=== PATIENT | male | born 1970 | race African-American/Black ===

== ENCOUNTER 2016-08-08 15:52 | Inpatient (IN) | payer BC ==
--- NOTE | ~2016-08-08 | CN ---
Consultation Report [facility] [address] [place]. [address] NAME: STERLING LOUIE : 68 STATUS : ADM IN [facility]#: [id number] AGE: 46 ADM/REG DATE : 08/08/16 MR#: [id number] REPORT SERV DATE: 08/09/16 DICTATED BY: ABEL CANELA JR. DATE: 08/09/16 REPORT STATUS : Draft TRANSCRIBED BY: KWABENA DATE: 08/09/16 CONSULTATION DATE OF CONSULTATION: INDICATION: CHF. HPI: The patient is a 46-year-old, noncompliant white male with presumed schizoaffective disorder who is also followed by Dr. Sami Mcmahon for cardiomyopathy and paroxysmal atrial fibrillation flutter who was recently discharged following ablation and now re- presents admittedly off medications with admitted noncompliance with hypertensive exacerbation and volume overload. Since resuming medications, symptoms have significantly improved. He is sitting up in bed without oxygen, drinking coffee this morning with no complaint. REVIEW OF SYSTEMS: Ten-point review of systems otherwise is unremarkable. He denies any angina. He denies any orthopnea, PND. MEDICATIONS: At home include acetazolamide 125 mg daily, aspirin 81 mg daily, Bumex 1 mg p.o. b.i.d., carvedilol 25 mg b.i.d., Plavix 75 mg daily, digoxin 0.125 mg daily, Flonase nasal spray, insulin, isosorbide mononitrate 30 mg daily, lisinopril 20 mg daily, multivitamin daily, pantoprazole 40 mg daily, potassium 10 mEq daily, Zocor 40 mg at bedtime. ALLERGIES: HALOPERIDOL. PAST MEDICAL HISTORY: Notable for history of mixed ischemic and nonischemic cardiomyopathy, history of diabetes mellitus, hyperlipidemia, hypertension. PAST SURGICAL HISTORY: Notable for left ear surgery, wrist EP ablation, prior PTCA and stent, remote. SOCIAL HISTORY: Notable for polysubstance abuse including amphetamines and barbiturates, tobacco, ethanol. FAMILY HISTORY: Notable for heart disease. PHYSICAL EXAMINATION: VITAL SIGNS: Blood pressure originally was 170/111, pulse was 82 and regular, respirations 14. The patient is afebrile. HEENT: Unremarkable. NECK: Supple without jugular venous distention. CARDIOVASCULAR: Regular rate and rhythm. S3, S4. Consultation Report [facility] [address] [place]. [address] NAME: STERLING LOUIE : 68 STATUS : ADM IN PAT#: [id number] AGE: 46 ADM/REG DATE : 08/08/16 MR#: [id number] REPORT SERV DATE: 08/09/16 DICTATED BY: ABEL CANELA JR. DATE: 08/09/16 REPORT STATUS : Draft TRANSCRIBED BY: MODL DATE: 08/09/16 LUNGS: Clear. ABDOMEN: Benign. Normoactive bowel sounds. EXTREMITIES: 1+ with no worsening of pedal edema. Venous stasis changes are improved. NEUROLOGIC: He appears to be grossly intact. LABORATORIES: EKG notable for sinus rhythm with nonspecific ST changes. Sodium 135, potassium 4, chloride 99, CO2 of 28, BUN 23, creatinine 1.2. Glucose of 495. H and H 11.4 and 31.4, white count of 6.4, platelet count 334,000. BNP of 2098. PT/INR of 1. Troponin less than 0.02. Chest x-ray is notable for cardiomegaly with mild interstitial edema. Bilateral pleural effusions and consolidation noted. ABG is noted. IMPRESSION: 46-year-old, white male with hypervolemia, hypertensive exacerbation, history of noncompliance with polysubstance abuse. RECOMMENDATIONS: 1. Resume home medications. 2. ARTIS hose. 3. Fluid restriction. 4. Control of the glucoses. 5. Recent nuclear in the past 2 months has been negative. He does not want a repeat nuclear at this time nor cardiac catheterization unless events change. 6. Cardiac risk factor reduction. /KWABENA Abel Canela Jr., M.D. / [id number] CC: Fracisco Rodriguez MD
--- NOTE | ~2016-08-08 | HP ---
History And Physical [place] [address] [facility] [place]. [address] NAME: STERLING LOUIE : 68 STATUS : ADM IN [facility]#: [id number] AGE: 46 ADM/REG DATE : 08/08/16 MR#: [id number] REPORT SERV DATE: 08/09/16 DICTATED BY: CANDACE WESTFALL DATE: 08/08/16 REPORT STATUS : Draft TRANSCRIBED BY: MODNando DATE: 08/08/16 DATE OF ADMISSION: 08/08/2016 POINT OF ENTRY: [facility] Emergency Department. PRIMARY SOLAR SALES ASSESSOR: Maximino Canela M.D. CHIEF COMPLAINT: Shortness of breath and dyspnea on exertion. HISTORY OF PRESENT ILLNESS: Mr. Louie is a 46-year-old gentleman with history of chronic systolic congestive heart failure with ejection fraction of 25% as well as coronary artery disease with prior PCI and uncontrolled insulin-dependent diabetes mellitus type 2 with hemoglobin A1c of 13.8, who presents to the emergency department today with reports of shortness of breath and dyspnea on exertion over the past two days. The patient was recently admitted to the Hospitalist Service in middle of June for acute on chronic systolic congestive heart failure. He underwent an echocardiogram which confirmed an ejection fraction of 25%. Stress test showed no inducible ischemia but was consider high risk given his depressed LV function and was discharged to home with a LifeVest with an appointment to follow up with Dr. Canela in approximately one month. The patient states that he originally was compliant with his medications, but he does admit that he missed his appointment with Dr. Canela in the middle of July, and for the past few weeks has not been taking any of his medications as he felt he could not keep up with a regimen or it was not helping him. The patient also admits to not checking his blood sugars during this time period as well. He denies any recent fevers, night sweats, chills, cough, sputum production, chest pain, palpitations, abdominal pain, nausea, vomiting, diarrhea, constipation, dysuria, melena, or hematochezia. States that his chronic lower extremity edema is largely unchanged. His main complaint is shortness of breath, dyspnea on exertion, and some orthopnea. On initial evaluation in the emergency department, initial blood pressure 170/111. Chest x- ray shows bilateral pleural effusions as well as some pulmonary edema and intravascular volume overload. BNP is massively elevated at almost 2100 and blood sugar is elevated at 495. The patient was given 80 mg of IV Lasix as well as some IV insulin and admitted to the Hospitalist Service. PREVIOUS MEDICAL HISTORY: 1. Chronic systolic congestive heart failure with ejection fraction of 25%. 2. Ischemic, dilated cardiomyopathy. 3. Coronary artery disease with prior reported PCI in 03/2016. 4. Hypertension. 5. Hyperlipidemia. 6. Uncontrolled insulin-dependent diabetes mellitus type 2 with hemoglobin A1c of 13.8. 7. Depression. 8. Bipolar disease. History And Physical [address] [address] NAME: STERLING LOUIE : 68 STATUS : ADM IN [facility]#: [id number] AGE: 46 ADM/REG DATE : 08/08/16 MR#: [id number] REPORT SERV DATE: 08/09/16 DICTATED BY: CANDACE WESTFALL DATE: 08/08/16 REPORT STATUS : Draft TRANSCRIBED BY: KWABENA DATE: 08/08/16 9. Mild pulmonary hypertension on echocardiogram. 10.Chronic diastolic congestive heart failure. 11.Gastroesophageal reflux disease. 12.History of polysubstance abuse. PAST SURGICAL HISTORY: Left wrist surgery. ALLERGIES: TO HALDOL. HOME MEDICATIONS: Of note, the patient does admit to not taking any of these medications for the past few weeks. 1. Diamox 125 mg daily. 2. Aspirin 81 mg daily. 3. Bumex 1 mg b.i.d. 4. Carvedilol 25 mg b.i.d. 5. Plavix 75 mg daily. 6. Digoxin 125 mcg daily. 7. Flonase two sprays nasal daily. 8. Insulin sliding scale. 9. Levemir 25 units daily. 10.Imdur 30 units daily. 11.Lisinopril 20 mg daily. 12.Multivitamin one tab daily. 13.Protonix 40 mg daily. 14.Potassium chloride 10 mEq daily. 15.Simvastatin 40 mg at bedtime. SOCIAL HISTORY: He denies any tobacco, alcohol, or illicits. States he is unemployed, is awaiting his disability. FAMILY MEDICAL HISTORY: Mother with diabetes. Father's history is unknown. Siblings with diabetes. LABS AND IMAGIN. White count is 6.4, hemoglobin is 11.4, hematocrit is 31.4, platelet count is 335, and INR is 1.0. 2. Sodium is 135, potassium of 4.0, chloride of 99, carbon dioxide of 28, BUN of 23, creatinine of 1.24, glucose is 495, on recheck is now 331. Calcium is 8.3 and magnesium is 2.2. 3. Troponin 0.02. BNP is 2098. 4. ABG, pH is 7.47, pCO2 is 34, PO2 is 65, and bicarb is 24. Saturating 93% on room air. 5. Chest x-ray, per my review, shows cardiomegaly as well as bilateral pleural effusions as well as intravascular volume overload and pulmonary venous congestion as well as mild bibasilar pulmonary edema. 6. EKG, per my review, shows normal sinus rhythm with left axis deviation as well as some inferolateral T-wave flattening. History And Physical [address] [address] NAME: STERLING LOUIE : 68 STATUS : ADM IN [facility]#: [id number] AGE: 46 ADM/REG DATE : 08/08/16 MR#: [id number] REPORT SERV DATE: 08/09/16 DICTATED BY: CANDACE WESTFALL DATE: 08/08/16 REPORT STATUS : Draft TRANSCRIBED BY: KWABENA DATE: 08/08/16 PHYSICAL EXAMINATION: VITAL SIGNS: Temperature is 97.9 degrees Fahrenheit, pulse is 97, respirations are 28, and saturating 96% on 2 L nasal cannula. Blood pressure 170/111, on recheck blood pressure now 169/110. Pulse of 94. GENERAL: The patient is awake, alert, in no distress, and resting comfortably in bed. He is a well-developed, well-nourished chronically ill-appearing male. HEENT: Atraumatic and normocephalic. Moist mucous membranes. Pupils are equal, round, reactive to light and accommodation. Extraocular movements are intact. No scleral icterus. NECK: Positive jugular venous distention of approximately 8 cm above the sternal angle. No carotid bruits. CARDIAC: Regular rate and rhythm. A faint 2/6 systolic murmur heard best over the left lower sternal border. LUNGS: On oxygen but in no real distress. Does have some decreased breath sounds in the bases as well as some inspiratory crackles and rales in the bilateral bases. ABDOMEN: Soft, nontender, and nondistended. Good bowel sounds. No rebound, guarding, or rigidity. EXTREMITIES: Warm and perfused with 2+ lower extremity edema. SKIN: Warm and dry. PSYCHIATRIC: Affect appropriate. NEUROLOGIC: Alert and oriented x3. Cranial nerves 2 through 12 grossly intact. Speech is normal. Gait not assessed. ASSESSMENT AND PLAN: Mr. Louie is a 46-year-old gentleman with a history of chronic systolic congestive heart failure, who presents with dyspnea on exertion and shortness of breath consistent with acute on chronic systolic congestive heart failure secondary to medication and dietary noncompliance. PROBLEM LIST: 1. Acute on chronic systolic and diastolic congestive heart failure. 2. Medication noncompliance. 3. Uncontrolled insulin-dependent diabetes mellitus type 2 with hyperglycemia. 4. Coronary artery disease with prior PCI. 5. Hypertension. PLAN: 1. Acute on chronic systolic and diastolic congestive heart failure. We will get patient back on his home CHF medications of carvedilol, Imdur, as well as lisinopril and simvastatin. We will place the patient on IV Bumex for the first 24 hours. Given that he is wearing a LifeVest and missed his appointment with Dr. Canela, we will also consult Dr. Canela for assistance. 2. Uncontrolled insulin-dependent diabetes mellitus type 2 with hyperglycemia. The patient received 8 units of IV insulin here in the emergency department with an improvement in the blood sugar from 495 to 331. I will give him another 6 units of IV insulin and place him on his home Levemir as well as the level 3 insulin sliding scale, consult diabetes educators for assistance. 3. Medication noncompliance. We will consult diabetes educators, CHF educators, as well as Case Management and Social Work to assist with educating as well as addressing any History And Physical [address] [address] NAME: STERLING LOUIE : 68 STATUS : ADM IN [facility]#: [id number] AGE: 46 ADM/REG DATE : 08/08/16 MR#: [id number] REPORT SERV DATE: 08/09/16 DICTATED BY: CANDACE WESTFALL DATE: 08/08/16 REPORT STATUS : Draft TRANSCRIBED BY: KWABENA DATE: 08/08/16 barriers to patient's compliance with his medications, followup doctor's appointments, as well as dietary restrictions. 4. Hypertension, continue the patient's home medications. We will place the patient on [id number]-[id number] nitroglycerin paste to assist with blood pressure control as well as pulmonary edema. 5. Coronary artery disease with prior PCI. The patient readily admits to noncompliance with aspirin as well as Plavix. He states that his most recent PCI was in 03/2016. His EKG and cardiac enzymes are nonischemic and he denies any chest pain. We will trend out cardiac enzymes. 6. DVT prophylaxis, Lovenox subcutaneous. CODE STATUS: The patient wished to be full code. JCB/MODL Candace Westfall MD / [id number] CC: MD Maximino Obrien Jr., M.D.
--- NOTE | ~2016-08-08 | DS ---
Discharge Summary [facility] [address] [place]. [address] NAME: STERLING LOUIE : 68 STATUS : DIS IN PAT#: [id number] AGE: 46 ADM/REG DATE : 08/08/16 MR#: [id number] REPORT SERV DATE: 08/10/16 DICTATED BY: WILLOW RODRIGUEZ DATE: 08/10/16 REPORT STATUS : Draft TRANSCRIBED BY: MODL DATE: 08/10/16 ADMISSION DATE: 08/08/2016 DISCHARGE DATE: 08/10/2016 REASON FOR ADMISSION: Acute on chronic systolic heart failure exacerbation secondary to noncompliance with medications and diet. HISTORY OF PRESENT ILLNESS: Please refer to Dr. Hartley's history and physical dated 08/08/2016 for complete details regarding the patient's admission. In brief, the patient was admitted to the Hospitalist Service for management of his heart failure exacerbation. HOSPITAL COURSE: The patient had an uncomplicated hospital course. His oxygen saturations were actually fine on admission. He presented with about 2+ lower extremity edema, some mild congestive heart failure changes on chest x-ray. He was started on IV diuretics. Dr. Canela, his custodial engineer, was consulted. Recommended continuing the current plan. On 08/10/2016, the patient has been compensated. His lower extremity edema was down to about trace to 1+ pitting edema. Heart failure nursing team reeducated the patient. The patient has felt that he was not taking his medicines because he was not seeing any results. He was provided with a scale for home use and the last known phone numbers he has given us were disconnected. The patient did discuss several barriers to followup care including transportation, primary care, financial, and pharmacy. He was provided with resources for transportation, which he has refused. He was provided which estefania medications via [facility] and claimed that he would obtain refills [facility], but he did not. He did not establish a primary care doctor. He was provided with access to the [facility] and Social Work assistance for social security to housing development, but he declined this as well. The patient has reached maximal hospitalization, will be discharged home today in stable condition. DISCHARGE DIAGNOSES: Acute on chronic systolic heart failure, decompensation, now compensated with known ischemic cardiomyopathy with an EF of 25%. Coronary artery disease with a history of MYSQL DBA and stent. Bipolar disorder, major depressive disorder, reflux, history of polysubstance abuse, and insulin-dependent diabetes. PROCEDURES: Include consultation with Dr. Canela. Chest x-ray. DISCHARGE MEDICATIONS: Include Diamox 125 mg daily, aspirin 81 mg daily, carvedilol 25 mg twice a day, Plavix 75 mg daily, digoxin 125 mcg daily, fluticasone nasal spray, insulin aspart, insulin Levemir 25 units daily, Imdur 30 mg daily, Prinivil 20 mg daily, multivitamin daily, Protonix 40 mg daily. He is to take potassium chloride 10 mEq, but hold it for the next three days. Simvastatin 40 mg daily, Bumex 1 mg twice a day. FOLLOWUP: He will follow up with Dr. Canela and the [facility]. JULIO C/KWABENA Discharge Summary [address] [address] NAME: STERLING LOUIE : 68 STATUS : DIS IN PAT#: [id number] AGE: 46 ADM/REG DATE : 08/08/16 MR#: [id number] REPORT SERV DATE: 08/10/16 DICTATED BY: WILLOW RODRIGUEZ DATE: 08/10/16 REPORT STATUS : Draft TRANSCRIBED BY: KWABENA DATE: 08/10/16 Willow Rodriguez MD / [id number] CC: Willow Rodriguez MD
[~2016-08-08 15:52] MED LIST: *UNABLE3; ASAEC PO; BUM1 PO; COREG12 PO; COREG6 PO; DENIES HOME MEDS; DIAM250B PO; DIGITEK0.125 MG PO; FLONASE NAS; FOLIC PO; HALF81 PO; IMDUR30 PO; KLOR-CON M1010 MEQ PO; KLOR-CON M2020 MEQ PO; L20 PO; LANTUSCART SC; LEVEMFLXPN SC; LOP50 PO; MULTIVITAMIN PO; NOVOPEN SC; PLAVIX PO; PRIN10 PO; PRIN20 PO; PRIN5 PO; PROTONIX PO; PROZAC PO; ZOCOR40 PO; [UNRECOGNIZED DRUG - OTHER] PO
[2016-08-08 16:48] LABS: BASOPHILS 0.3 %; BASOPHILS ABSOLUTE 0.02 10/3/uL (0.0-0.16); EOSINOPHILS 1.6 %; ER CBC TAT 0 Hrs 11 Mins; HEMATOCRIT 31.4 % (40.0-51.0); HEMOGLOBIN 11.4 g/dL (13.6-17.8); IMMATURE GRANULOCYTES 0.2 %; IMMATURE GRANULOCYTES ABSOLUTE 0.01 10/3/uL (0.0-0.11); LYMPHOCYTES 16.2 %; LYMPHOCYTES ABSOLUTE 1.03 10/3/uL (0.67-4.30); MANUAL DIFF NO %; MEAN CORPUS HGB CONC 36.3 g/dL (32.0-36.0); MEAN CORPUSCULAR HEMOGLOB 32.1 pg (26.0-34.0); MEAN CORPUSCULAR VOLUME 88.5 fL (80-100); MEAN PLATELET VOLUME 9.9 fL (9.2-13.0); MONOCYTES 3.3 %; MONOCYTES ABSOLUTE 0.21 10/3/uL (0.21-1.20); NEUTROPHILS 78.4 %; PLATELET COUNT 335 10/3/uL (150-400); RBC DISTRIBUTION WIDTH 12.4 % (12.0-16.0); RED CELL COUNT 3.55 10/6/uL (4.7-6.1); WHITE BLOOD CELLS 6.4 10/3/uL (4.5-10.5)
[2016-08-08 16:49] LABS: PARTIAL THROMBO TIME 26.6 SEC (22.5-37.2); PROTIME (NOT ORD) 12.6 SEC (12.0-14.5)
[2016-08-08 17:01] LABS: BUN (BLOOD UREA NITROGEN) 23 MG/DL (6-23); CALCIUM, SERUM 8.3 MG/DL (8.5-10.4); CHEST PAIN PROFILE TAT 0 Hrs 24 Mins; CHLORIDE, SERUM 99 MMOL/L (96-112); CO2 (CARBON DIOXIDE) 28 MMOL/L (24-34); CREATININE 1.24 MG/DL (0.70-1.30); GFR AFRICAN AMERICAN 80 ML/MIN (>=60); GFR NON AFRICAN AMERICAN 69 ML/MIN (>=60); GLUCOSE, SERUM 495 MG/DL (60-99); SODIUM, SERUM 135 MMOL/L (135-148); TROPONIN I 0.02 NG/ML (<0.05)
[2016-08-08 17:02] LABS: ALLENS TEST Pos; BE (BASE EXCESS) 1.1 MEQ/L (0 +/- 2.5); CARBOXYHEMOGLOBIN 1.2 % (0-3); HCO3 (ACTUAL BICARBONATE) 24.4 MEQ/L (23-27); HEMOBLOGIN CONTENT 11.3 G/DL (14-18); INSTRUMENT SERIAL # 8087; METHEMOGLOBIN 0.3 % (0-3); O2 CONTENT 14.6 VOL% (18-24); PCO2 (CO2 TENSION) 34 MMHG (35-45); PO2 (O2 TENSION) 65 MMHG (79-93); SAMPLE Arterial; pH 7.47 (7.37-7.43)
[2016-08-08] MEDS ORDERED: PRIN20 PO (18:23)
[2016-08-08] MEDS ORDERED: PROTONIX PO (18:23)
[2016-08-08] MEDS ORDERED: ZOCOR40 PO (18:24)
[2016-08-08] MEDS ORDERED: LAN125 PO (18:24)
[2016-08-08] MEDS ORDERED: BUM1 PO (18:24)
[2016-08-08] MEDS ORDERED: DIAM250B PO (18:24)
[2016-08-08] MEDS ORDERED: NOVOLOG SC (18:25)
[2016-08-08] MEDS ORDERED: ASAB PO (18:26)
[2016-08-08] MEDS ORDERED: PLAVIX PO (18:26)
[2016-08-08] MEDS ORDERED: K-TABS10 MEQ PO (18:27)
[2016-08-08] MEDS ORDERED: COREG25 PO (18:27)
[2016-08-08] MEDS ORDERED: LEVEMIR SC (18:28)
[2016-08-08] MEDS ORDERED: IMDUR30 PO (18:28)
[2016-08-08] MEDS ORDERED: MULTIVITAMI1 PO (18:29)
[2016-08-08] MEDS ORDERED: FLONASE NAS (18:30)
[2016-08-08 23:47] LABS: TROPONIN I 0.02 NG/ML (<0.05)
[2016-08-08 23:48] LABS: CK-MB 4.7 NG/ML; CPK 84 U/L (0-200)
[2016-08-09 06:09] LABS: BASOPHILS 0.3 %; BASOPHILS ABSOLUTE 0.02 10/3/uL (0.0-0.16); EOSINOPHILS 2.6 %; EOSINOPHILS ABSOLUTE 0.15 10/3/uL (0.0-0.53); HEMOGLOBIN 9.6 g/dL (13.6-17.8); IMMATURE GRANULOCYTES 0.2 %; IMMATURE GRANULOCYTES ABSOLUTE 0.01 10/3/uL (0.0-0.11); LYMPHOCYTES 18.8 %; LYMPHOCYTES ABSOLUTE 1.08 10/3/uL (0.67-4.30); MEAN CORPUSCULAR HEMOGLOB 31.6 pg (26.0-34.0); MEAN CORPUSCULAR VOLUME 87.8 fL (80-100); MONOCYTES 6.3 %; MONOCYTES ABSOLUTE 0.36 10/3/uL (0.21-1.20); NEUTROPHILS 71.8 %; NEUTROPHILS ABSOLUTE 4.12 10/3/uL (2.02-8.40); PLATELET COUNT 260 10/3/uL (150-400); RBC DISTRIBUTION WIDTH 12.5 % (12.0-16.0); RED CELL COUNT 3.04 10/6/uL (4.7-6.1); WHITE BLOOD CELLS 5.7 10/3/uL (4.5-10.5)
[2016-08-09 06:12] LABS: HEMATOCRIT 26.7 % (40.0-51.0); MANUAL DIFF NO %
[2016-08-09 06:28] LABS: BUN (BLOOD UREA NITROGEN) 26 MG/DL (6-23); CALCIUM, SERUM 8.1 MG/DL (8.5-10.4); CHLORIDE, SERUM 104 MMOL/L (96-112); CO2 (CARBON DIOXIDE) 28 MMOL/L (24-34); CPK 69 U/L (0-200); CREATININE 1.12 MG/DL (0.70-1.30); GFR AFRICAN AMERICAN 90 ML/MIN (>=60); GFR NON AFRICAN AMERICAN 78 ML/MIN (>=60); POTASSIUM, SERUM 3.9 MMOL/L (3.5-5.3); SODIUM, SERUM 140 MMOL/L (135-148); TROPONIN I 0.03 NG/ML (<0.05)
[2016-08-09 06:29] LABS: CK-MB 4.8 NG/ML; GLUCOSE, SERUM 159 MG/DL (60-99)
[2016-08-10 06:28] LABS: CHLORIDE, SERUM 102 MMOL/L (96-112); CO2 (CARBON DIOXIDE) 27 MMOL/L (24-34); CREATININE 1.31 MG/DL (0.70-1.30); GFR AFRICAN AMERICAN 75 ML/MIN (>=60); GFR NON AFRICAN AMERICAN 64 ML/MIN (>=60); SODIUM, SERUM 138 MMOL/L (135-148)
[2016-08-10 06:30] LABS: BUN (BLOOD UREA NITROGEN) 33 MG/DL (6-23); GLUCOSE, SERUM 72 MG/DL (60-99)
[2016-08-10 06:32] LABS: BASOPHILS 0.6 %; BASOPHILS ABSOLUTE 0.04 10/3/uL (0.0-0.16); EOSINOPHILS 2.8 %; EOSINOPHILS ABSOLUTE 0.17 10/3/uL (0.0-0.53); HEMATOCRIT 26.6 % (40.0-51.0); HEMOGLOBIN 9.4 g/dL (13.6-17.8); IMMATURE GRANULOCYTES 0.2 %; IMMATURE GRANULOCYTES ABSOLUTE 0.01 10/3/uL (0.0-0.11); LYMPHOCYTES 14.4 %; LYMPHOCYTES ABSOLUTE 0.89 10/3/uL (0.67-4.30); MANUAL DIFF NO %; MEAN CORPUS HGB CONC 35.3 g/dL (32.0-36.0); MEAN CORPUSCULAR HEMOGLOB 31.2 pg (26.0-34.0); MEAN CORPUSCULAR VOLUME 88.4 fL (80-100); MEAN PLATELET VOLUME 10.2 fL (9.2-13.0); MONOCYTES 5.2 %; MONOCYTES ABSOLUTE 0.32 10/3/uL (0.21-1.20); NEUTROPHILS 76.8 %; NEUTROPHILS ABSOLUTE 4.74 10/3/uL (2.02-8.40); PLATELET COUNT 285 10/3/uL (150-400); RBC DISTRIBUTION WIDTH 12.8 % (12.0-16.0); RED CELL COUNT 3.01 10/6/uL (4.7-6.1); WHITE BLOOD CELLS 6.2 10/3/uL (4.5-10.5)
[2016-12-29] MEDS ORDERED: IMDUR30 PO (05:42)
[2016-12-29] MEDS ORDERED: DIAM250B PO (05:43)
[2016-12-29] MEDS ORDERED: BUM1 PO (05:43)
[2016-12-29] MEDS ORDERED: ZOCOR40 PO (05:44)
[2016-12-29] MEDS ORDERED: COREG25 PO (05:44)
[2016-12-29] MEDS ORDERED: PRIN20 PO (05:45)
[2016-12-29] MEDS ORDERED: LAN125 PO (05:45)
[2016-12-29] MEDS ORDERED: HALF81 PO (05:45)
[2016-12-29] MEDS ORDERED: PROTONIX PO (05:46)
[2016-12-29] MEDS ORDERED: PLAVIX PO (05:46)
[2016-12-29] MEDS ORDERED: MICRO-K10 MEQ PO (05:47)
[2016-12-29] MEDS ORDERED: GAS X PO (05:48)
[2016-12-29] MEDS ORDERED: NOVOPEN (05:49)
[2016-12-29] MEDS ORDERED: FLONASE INH (05:50)
[2016-12-29] MEDS ORDERED: LEVEMFLXPN (05:51)
== END 2016-08-10 13:52 | disposition home or self-care (01) | DRG 292 ==
LOC: ER 15:52 → 7NO 18:57
PROVIDERS: Emergency Medicine; Internal Medicine; Nurse Practitioner
DX: I11.0 Hypertensive heart disease with heart failure (principal); Z68.1 Body mass index [BMI] 19.9 or less, adult; I42.9 Cardiomyopathy, unspecified; F32.9 Major depressive disorder, single episode, unspecified; I25.10 Atherosclerotic heart disease of native coronary artery without angina pectoris; I50.23 Acute on chronic systolic (congestive) heart failure; Z91.14 Patient's other noncompliance with medication regimen; K21.9 Gastro-esophageal reflux disease without esophagitis; R63.6 Underweight; Z79.4 Long term (current) use of insulin
CPT/HCPCS: 36600; 71010; 80048; 82550; 82553; 82805; 82962; 83735; 83880; 84484; 85025; 85610; 85730; 93005; 96374; 99285; A9270-GY; J1940

== ENCOUNTER 2016-09-07 13:46 | Inpatient (IN) | payer BC ==
--- NOTE | ~2016-09-07 | CN ---
Consultation Report [facility] [address] [place]. [address] NAME: STERLING LOUIE : 68 STATUS : ADM IN PAT#: [id number] AGE: 46 ADM/REG DATE : 09/07/16 MR#: [id number] REPORT SERV DATE: 09/11/16 DICTATED BY: ALEX STACK DATE: 09/11/16 REPORT STATUS : Draft TRANSCRIBED BY: MODL DATE: 09/11/16 PSYCHIATRIC CONSULTATION DATE OF CONSULTATION: 09/11/2016 I reviewed the patient's current and old medical records. HISTORY OF PRESENT ILLNESS: He has had multiple admissions over the past year or so with congestive heart failure, ischemic cardiomyopathy and ejection fraction of 25%. He has been noncompliant with followup outpatient care. PAST PSYCHIATRIC HISTORY: He reports that he had one psychiatric hospitalization in [place] and another one at [facility] some years ago. He reports that he was diagnosed with depression. He had made a suicide attempt by overdosing prior to the admission to [facility]. He never followed up with outpatient psychiatric care because he felt he did not need it. Recently his PCP prescribed Prozac, without apparent benefits. SOCIAL HISTORY: He reports that he grew up with a single mother in [place]. His mother lost custody of her children because of alcoholism and other problems. In spite of his adverse childhood circumstances, he graduated from high school and then from a technical college. 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 While he was still living in [place], he got and stayed for about 10 years. He had 3 children with that . He had one son before that marriage. His second marriage which was in the local area ended in a divorce last year. He said his ex lives in [place] and she is occasionally available to help him and provide transportation. He has applied for disability. MENTAL STATUS: He was quite talkative. His mood was euthymic. His affect was full and appropriate. He described in detail his experience of visual illusions yesterday where people and objects seemed to move. He also describes seeing double at one time. He described increasing difficulty with his visual acuity in recent months. His thinking was logical. He had no delusions. He had no hallucinations. He was oriented to time, place, and person. He demonstrated good recent and remote memory. DIAGNOSIS: Personality disorder, not otherwise specified. RECOMMENDATIONS: No psychotropic intervention is needed at this time. The visual illusions may be related to retinal or other visual problems which should be further evaluated probably as an outpatient after discharge. I will sign off. ASRAH/KWABENA Consultation Report [address] [place]. [address] NAME: STERLING LOUIE : 68 STATUS : ADM IN PAT#: [id number] AGE: 46 ADM/REG DATE : 09/07/16 MR#: [id number] REPORT SERV DATE: 09/11/16 DICTATED BY: ALEX STACK DATE: 09/11/16 REPORT STATUS : Draft TRANSCRIBED BY: KWABENA DATE: 09/11/16 Alex Stack M.D. / [id number] CC: Gerardo Loco MD
--- NOTE | ~2016-09-07 | DS ---
Discharge Summary [facility] [address] [place]. [address] NAME: STERLING LOUIE : 68 STATUS : DIS IN PAT#: [id number] AGE: 46 ADM/REG DATE : 09/07/16 MR#: [id number] REPORT SERV DATE: 09/21/16 DICTATED BY: AZUL VIDAL DATE: 09/20/16 REPORT STATUS : Draft TRANSCRIBED BY: MODL DATE: 09/20/16 ADMISSION DATE: 09/07/2016 DISCHARGE DATE: 09/20/2016 CONSULTATIONS: Dr. Alex Hurtado, Psychiatry. DISCHARGE DIAGNOSES: 1. Acute on chronic systolic congestive heart failure with left ventricular ejection fraction of 25%. 2. Diabetes mellitus type 2, uncontrolled, with A1c of 13.1%. 3. Hypertension. 4. Newly diagnosed hypothyroidism. 5. Personality disorder. 6. Chronic normocytic anemia. HISTORY: The patient was hospitalized here in June and August of this year for decompensated congestive heart failure. The patient faces a lot of social challenges. He had not been compliant with his medications nor with his diet nor taking his insulin for some time. He is . His ex- is involved in his care to a degree. He lives alone. He is unemployed. He has visual challenges making it difficult for him to see glucose monitors or the insulin pen. When he came to the emergency room, he was found to have decompensated congestive heart failure. He was referred to our team for inpatient care. On admission, chest x-ray showed pulmonary congestion and interstitial edema and bilateral pleural effusions. His arterial blood gas on admission on room air: pH 7.46, pCO2 of 35, pO2 of 65, bicarbonate 23.9. Cardiac troponins were normal. B-natriuretic peptide was elevated at 1494, and before discharge it was down to 433.2. The patient had a successful diuresis and medications were adjusted. Psychiatry, Dr. Hurtado met with him. The patient has a history of previous psychiatric hospitalizations in [place], [place], and at least one at [facility] here in the local area with a history of depression and previous suicide attempt. Psychiatrist, Dr. Hurtado felt the patient had a personality disorder. He had no psychotropic medications recommended, just outpatient followup. Our team did put him on Zoloft while he was here and he tolerated it well. tile layer drainage has met with the patient and gone over the insulin pens with him again and apparently he can count clicks. He would be better served with a glucose monitor that either reads him the number or has large letters. Congestive heart failure team has met with him again, so has Case Management. The patient has a LifeVest at home, but has not been compliant with it. He now states he will wear it and he agrees to follow up with Dr. Maximino Canela, his textile artist. Case Management has been able to make arrangements for him to go to inpatient rehab. DISCHARGE MEDICATIONS: Diamox 125 mg daily; Bumex 1 mg b.i.d.; Coreg 25 mg b.i.d.; Plavix 75 Discharge Summary [address] [place]. [address] NAME: STERLING LOUIE : 68 STATUS : DIS IN PAT#: [id number] AGE: 46 ADM/REG DATE : 09/07/16 MR#: [id number] REPORT SERV DATE: 09/21/16 DICTATED BY: AZUL VIDAL DATE: 09/20/16 REPORT STATUS : Draft TRANSCRIBED BY: KWABENA DATE: 09/20/16 mg daily; digoxin 0.125 mg daily; Flonase two sprays in nostrils daily; NovoLog level 2 a.c. and at bedtime; Imdur 30 mg daily; Synthroid 25 mcg daily has been started new for him now as his TSH was elevated at 7.73 and has been elevated two prior times this year; Protonix 40 mg daily; Zoloft 50 mg daily, which is new this admission; Zocor 40 mg daily; Levemir 15 units twice daily; glucagon p.r.n. hypoglycemia if unresponsive; glucose tablets p.r.n. hypoglycemia if responsive; nitroglycerin 0.4 mg sublingual p.r.n. chest pain; and aspirin 81 mg daily. He should have a followup TSH in about a month and he will have followup appointment with Dr. Maximino Canela's nurse practitioner, Edelmira Desir, in about two weeks at [facility], and he has a PCP appointment with [facility] on 10/01/2016 at 1330 hours. I spent 31 minutes today with the patient with discharge planning. DENZEL/KWABENA Azul Vidal M.D. / [id number] CC: Brynn Loyola Jr., M.D. [facility]
--- NOTE | ~2016-09-07 | DS ---
Discharge Summary [facility] [address] [place]. [address] NAME: STERLING LOUIE : 68 STATUS : ADM IN [facility]#: [id number] AGE: 46 ADM/REG DATE : 09/07/16 MR#: [id number] REPORT SERV DATE: 09/19/16 DICTATED BY: AZUL VIDAL DATE: 09/18/16 REPORT STATUS : Draft TRANSCRIBED BY: MODL DATE: 09/18/16 ADMISSION DATE: 09/07/2016 DISCHARGE DATE: 09/18/2016 MECHANICAL TEST TECHNICIAN: Dr. Alex Hurtado, Psychiatry. DISCHARGE DIAGNOSES: 1. Tcobi-vz-xybpbuj systolic congestive heart failure with left ventricular ejection fraction 25%. 2. Uncontrolled diabetes mellitus type 2 with previous A1c 13.8%, 06/13/2016. 3. Hypertension. 4. Personality disorder. 5. History of poor compliance with medications, diet, fluid restriction, followup, and LifeVest. 6. Newly diagnosed hypothyroidism. 7. Normocytic chronic anemia. HISTORY: This patient has been hospitalized here in June and in August of this year for decompensated congestive heart failure. Unfortunately, the patient has a lot of social challenges. He reports that he has not been compliant with his medications nor with his diet, not taking his insulin for sometime. He has some social challenges, where he is . His ex- is involved to a degree. He lives alone. He is unemployed. He is having visual challenges, where it is hard for him to see the insulin pen. When he came to the emergency room, he was found to have signs of decompensated congestive heart failure and was referred to our team for inpatient care. On admission, chest x-ray showing pulmonary congestion and interstitial edema and bilateral pleural effusions. His blood gas on admission on room air, pH 7.46, pCO2 of 35, pO2 of 65, bicarbonate 23.9. Cardiac troponins were normal. B-natriuretic peptide was elevated at 1494 and by discharge, it was down to 433.2. The patient was diuresed. Medications were adjusted. Psychiatry, Dr. Hurtado met with him. The patient has a history of previous psychiatric hospitalizations in [place], [place] and at least one at [facility] here in the local area with a history of depression and previous suicide attempt. Psychiatrist, Dr. Hurtado felt the gentleman had personality disorder. He had no psychotropic medications were recommended, just recommended outpatient followup. public health educator has met with the patient and gone over the insulin pens again. Congestive Heart Failure education has met with him. Case Management has met with him. Apparently, he has a LifeVest at home, but had been compliant with it. He now states he will wear it. He is to follow up with Dr. Maximino Canela, his supervisor wash house about this. Case management has made arrangements for him to have follow up at the [facility] on 10/01/2016 at 1:30 p.m. He is also to see the [facility] group with Dr. Lance Canela; nurse practitioner, Edelmira Desir in two weeks after discharge. Case Discharge Summary [address] [address] NAME: STERLING LOUIE : 68 STATUS : ADM IN [facility]#: [id number] AGE: 46 ADM/REG DATE : 09/07/16 MR#: [id number] REPORT SERV DATE: 09/19/16 DICTATED BY: AZUL VIDAL DATE: 09/18/16 REPORT STATUS : Draft TRANSCRIBED BY: KWABENA DATE: 09/18/16 duty manager is setting up for a walker and a possible bed for him at home because he states he has no bed. They are also setting up for home health social work faculty member, physical therapy registered nurse visiting to do home PT and medication education, medication compliance, also social work faculty member to work with him and possible disability application. Case Management is trying to help with transportation to and from his medical appointments and outpatient mental health appointment as well. DISCHARGE MEDICATIONS: Diamox 125 mg daily, Bumex 1 mg twice a day, Coreg 25 mg twice a day, Plavix 75 mg daily, digoxin 0.125 mg daily, Flonase nasal spray a puff in each nostril, Imdur 30 mg daily, NovoLog level 2 a.c. and h.s., lisinopril 20 mg daily, Protonix 40 mg daily, Zoloft 50 mg daily, Levemir 15 units twice per day, K tablets 10 mEq daily, Synthroid 25 mcg p.o. daily (his TSH here was elevated at 7.73 and it has been noted to be mildly elevated during June of this year). At the time of discharge, he had no jugular venous distention. He had no wheezes, no rhonchi. He was comfortable breathing webb. No chest pain. No abdominal pain. The chance of rehospitalization unfortunately is high for the social issues as well as some mental health issues in addition to his significant medical conditions. I spent 65 minutes with the patient today. DENZEL/KWABENA Azul Vidal M.D. / [id number] CC: Brynn Loyola Jr., M.D. [facility]
--- NOTE | ~2016-09-07 | IDS ---
Interim Discharge Summary [facility] [address] [place]. [address] NAME: STERLING LOUIE : 68 STATUS : ADM IN PAT#: [id number] AGE: 46 ADM/REG DATE : 09/07/16 MR#: [id number] REPORT SERV DATE: 09/17/16 DICTATED BY: YAYO LOCO DATE: 09/17/16 REPORT STATUS : Draft TRANSCRIBED BY: MODL DATE: 09/17/16 ADMISSION DATE: 09/07/2016 DISCHARGE DATE: Date of interim summary covers up to 09/17/2016. CHIEF COMPLAINT ON ADMISSION: Hyperglycemia, heart failure. DISCHARGE DIAGNOSES: 1. Acute systolic heart failure with ejection fraction 25%. 2. Diabetes, uncontrolled. 3. Bipolar disorder. 4. Anemia. 5. Acute kidney injury with diuresis. HISTORY OF PRESENT ILLNESS: Please see full H and P by Dr. Marco A Boswell for details regarding initial presentation. HOSPITAL COURSE: 1. Acute systolic heart failure. The patient currently improving with diuresis. Continuing IV diuresis at this time. 2. Diabetes, continue current medications and titrated up his insulin. Diabetes education has seen him during this hospitalization. They are concerned about his safety of getting his medication at home, at this time given some neuropathy. 3. Bipolar disorder. The patient was seen by Psychiatry, continue current medications. 4. Anemia, follow in a.m. This has been grossly stable. 5. Acute kidney injury with diuresis. Last check labs yesterday creatinine 1.22. We will again check in the morning. DISPOSITION: This is complicated by the patient's social issues. At this point, he does live by himself with limited resources. He has been intermittently compliant with his outpatient medications. At this time, we are recommending SNF placement. This is in the works of Case Management. DNK/MODL Yayo Loco MD / [id number] CC: Yayo Loco MD
--- NOTE | ~2016-09-07 | HP ---
History And Physical [facility] [id number] [place]. [address] NAME: STERLING LOUIE : 68 STATUS : REG ER PAT#: [id number] AGE: 46 ADM/REG DATE : 09/07/16 MR#: [id number] REPORT SERV DATE: 09/07/16 DICTATED BY: MARCO A GOLD DATE: 09/07/16 REPORT STATUS : Draft TRANSCRIBED BY: MODL DATE: 09/07/16 DATE OF ADMISSION: 09/07/2016 CHIEF COMPLAINT: Hyperglycemia, CHF. HISTORY OF PRESENT ILLNESS: The patient is a 46-year-old male. He has a past medical history significant for chronic systolic congestive heart failure, last EF was approximately 25%, CAD, diabetes mellitus, hypertension, and hyperlipidemia, who presents today with complaint of shortness of breath and increasing edema. The patient was recently hospitalized and was discharged on 08/01/2016 with similar complaints. He does state that he has not been taking his medication consistently because he "gets busy and forgets." He has not been taking his insulin because he states he has difficulty seeing the numbers on the pen and does not want to take the wrong amount of insulin. He presented to the emergency department with an elevated BNP higher than his baseline sugar of over 500 and he is being admitted for CHF and hyperglycemia. He has received 40 IV Lasix and 10 IV insulin prior to my arrival. He denies any other associated symptoms such as headache or dizziness. He is denying chest pain or palpitations at the current time. He is otherwise without complaints. PAST MEDICAL HISTORY: As covered above. PAST SURGICAL HISTORY: He has had left wrist surgery in the past. CURRENT MEDICATIONS: He was to be on Levemir 25 daily and sliding scale insulin. He has not been taking those. Other medications per his provided list are Diamox 250/125 daily, Bumex 1 mg daily, Coreg 25 b.i.d., Plavix 75, Lanoxin 0.125, Flonase nasal spray, Imdur 30, Prinivil 20, Protonix 40, potassium 10, and Zocor 40. ALLERGIES: HALDOL. FAMILY HISTORY: Mother with diabetes. Father's history is unknown. SOCIAL HISTORY: Nonsmoker, nondrinker. REVIEW OF SYSTEMS: HEENT: Again, no complaints of headache. CARDIOVASCULAR: No chest pain or palpitations. Positive shortness of breath. PULMONARY: No fever or purulent sputum. GI: He states he has some "stomach pain," but feels that is from his awkward sleeping position. : He reports no difficulty passing urine. NEUROMUSCULOSKELETAL: He reports positive dependent edema. Otherwise, a 10-point review of system is negative except as covered above. PHYSICAL EXAMINATION: History And Physical [address] [address] NAME: STERLING LOUIE : 68 STATUS : REG ER PAT#: [id number] AGE: 46 ADM/REG DATE : 09/07/16 MR#: [id number] REPORT SERV DATE: 09/07/16 DICTATED BY: MARCO A GOLD DATE: 09/07/16 REPORT STATUS : Draft TRANSCRIBED BY: KWABENA DATE: 09/07/16 VITAL SIGNS: His admitting blood pressure was 186/124, it is currently 178/116; sat 98% on room air; temp 97.6; pulse 100; respirations 15. GENERAL: He is awake, alert, and oriented. HEENT: Normocephalic, atraumatic. Sclerae are nonicteric. NECK: Supple. HEART: Regular rate and rhythm. LUNGS: Show decreased breath sounds in the bases. ABDOMEN: Soft, nontender, with positive bowel sounds. No guarding. No rebound. EXTREMITIES: 3+ edema, symmetric bilaterally from the knees down. NEUROLOGIC: Grossly intact. IMAGING: His chest x-ray is currently pending. His EKG shows no acute ST changes. He is in sinus rhythm. LABORATORY DATA: ABG showed a pH of 7.4, CO2 of 34, O2 of 64, sat 92%. Sodium is 135, potassium 4.2, chloride 100, CO2 of 26, BUN and creatinine of 27 and 1.24, initial glucose of 540, BNP 1494. It appears his lowest BNP is around 500. White count 6.2, hemoglobin and hematocrit are 11.3 and 31.5, platelets are 288. ASSESSMENT: Chronic congestive heart failure with hypertension, dependent edema, and hyperglycemia, most likely due to some degree of medical noncompliance. PLAN: 1. The patient has been admitted. 2. We will dose home medications and p.r.n. for blood pressure. Continue IV diuresis, blood sugar control. Further recommendations pending above. TLF/MODL Marco A Gold M.D. / [id number] CC: NO PCP
[~2016-09-07 13:46] MED LIST changes: +ASAB PO; +COREG25 PO; +K-TABS10 MEQ PO; +LAN125 PO; +LEVEMIR SC; +MULTIVITAMI1 PO; +NOVOLOG SC
[2016-09-07 14:28] LABS: ALLENS TEST Pos; BE (BASE EXCESS) 0.4 MEQ/L (0 +/- 2.5); CARBOXYHEMOGLOBIN 1.3 % (0-3); HCO3 (ACTUAL BICARBONATE) 23.9 MEQ/L (23-27); HEMOBLOGIN CONTENT 11.1 G/DL (14-18); INSTRUMENT SERIAL # 8087; METHEMOGLOBIN 0.3 % (0-3); O2 CONTENT 14.2 VOL% (18-24); OPERATOR ID 14335; PCO2 (CO2 TENSION) 35 MMHG (35-45); PO2 (O2 TENSION) 65 MMHG (79-93); SAMPLE Arterial; pH 7.46 (7.37-7.43)
[2016-09-07 15:12] LABS: BASOPHILS 0.3 %; BASOPHILS ABSOLUTE 0.02 10/3/uL (0.0-0.16); EOSINOPHILS 1.3 %; EOSINOPHILS ABSOLUTE 0.08 10/3/uL (0.0-0.53); ER CBC TAT 0 Hrs 03 Mins; IMMATURE GRANULOCYTES 0.3 %; IMMATURE GRANULOCYTES ABSOLUTE 0.02 10/3/uL (0.0-0.11); LYMPHOCYTES 14.8 %; LYMPHOCYTES ABSOLUTE 0.91 10/3/uL (0.67-4.30); MEAN CORPUS HGB CONC 35.9 g/dL (32.0-36.0); MEAN CORPUSCULAR HEMOGLOB 31.3 pg (26.0-34.0); MEAN CORPUSCULAR VOLUME 87.3 fL (80-100); MEAN PLATELET VOLUME 9.8 fL (9.2-13.0); MONOCYTES 4.4 %; MONOCYTES ABSOLUTE 0.27 10/3/uL (0.21-1.20); NEUTROPHILS 78.9 %; NEUTROPHILS ABSOLUTE 4.86 10/3/uL (2.02-8.40); PLATELET COUNT 288 10/3/uL (150-400); RBC DISTRIBUTION WIDTH 12.8 % (12.0-16.0); RED CELL COUNT 3.61 10/6/uL (4.7-6.1); WHITE BLOOD CELLS 6.2 10/3/uL (4.5-10.5)
[2016-09-07 15:13] LABS: HEMATOCRIT 31.5 % (40.0-51.0); HEMOGLOBIN 11.3 g/dL (13.6-17.8); MANUAL DIFF NO %
[2016-09-07 15:22] LABS: PARTIAL THROMBO TIME 26.9 SEC (22.5-37.2)
[2016-09-07 15:30] LABS: BUN (BLOOD UREA NITROGEN) 22 MG/DL (6-23); CHEST PAIN PROFILE TAT 0 Hrs 21 Mins; CHLORIDE, SERUM 100 MMOL/L (96-112); CO2 (CARBON DIOXIDE) 26 MMOL/L (24-34); CREATININE 1.24 MG/DL (0.70-1.30); GFR AFRICAN AMERICAN 80 ML/MIN (>=60); GFR NON AFRICAN AMERICAN 69 ML/MIN (>=60); POTASSIUM, SERUM 4.2 MMOL/L (3.5-5.3); SODIUM, SERUM 135 MMOL/L (135-148); TROPONIN I 0.03 NG/ML (<0.05)
[2016-09-07 15:31] LABS: GLUCOSE, SERUM 540 MG/DL (60-99)
[2016-09-07 17:24] LABS: AMPHETAMINES (NOT ORD) NEG (NEG); BARBITURATES (NOT ORDERED NEG (NEG); BENZODIAZEPINES (NOT ORD) NEG (NEG); CANNABINOIDS (THC) NEG (NEG); COCAINE (NOT ORDERED) NEG (NEG); OPIATES NEG (NEG); PHENCYCLIDINE(PCP) NEG (NEG); TRICYCLICS NEG (NEG)
[2016-09-07 17:43] LABS: ASCORBIC ACID (UR NOT ORDER) NEG (NEG); BILIRUBIN, URINE NEGATIVE (NEG); ER URINALYSIS TAT 0 Hrs 10 Mins; KETONE, URINE NEGATIVE (NEG); LEUKOCYTE ESTERASE(NOT OR NEG (NEG); NITRITE (URINE) NEG (NEG); WBC (NOT ORDERED) (RFLEX) < 1 (0-5)
[2016-09-07 18:03] LABS: ACETAMINOPHEN LEVEL (TYLENOL) 2.9 MCG/ML (10.0-20.0)
[2016-09-07 18:05] LABS: ALCOHOL < 10 MG/DL (0); SALICYLATE < 1.7 MG/DL (-)
[2016-09-07 22:04] LABS: A/G RATIO 0.4 (0.7-1.9); ALBUMIN 1.7 G/DL (3.5-5.0); BUN (BLOOD UREA NITROGEN) 22 MG/DL (6-23); CALCIUM, SERUM 8.1 MG/DL (8.5-10.4); CHLORIDE, SERUM 98 MMOL/L (96-112); CO2 (CARBON DIOXIDE) 28 MMOL/L (24-34); CREATININE 1.25 MG/DL (0.70-1.30); DIGOXIN 0.1 NG/ML (0.8-2.0); GFR AFRICAN AMERICAN 79 ML/MIN (>=60); GFR NON AFRICAN AMERICAN 68 ML/MIN (>=60); GLOBULIN 3.8 G/DL (2.5-4.1); POTASSIUM, SERUM 3.7 MMOL/L (3.5-5.3); SGOT(AST) 16 U/L (5-40); SGPT(ALT) 18 U/L (5-65); SODIUM, SERUM 137 MMOL/L (135-148); TOTAL BILIRUBIN 0.3 MG/DL (0-1.2); TOTAL PROTEIN 5.5 G/DL (6.0-8.5); TROPONIN I 0.02 NG/ML (<0.05)
[2016-09-07 22:05] LABS: ALKALINE PHOSPHATASE 167 U/L (45-117); GLUCOSE, SERUM 341 MG/DL (60-99)
[2016-09-08 04:08] LABS: BUN (BLOOD UREA NITROGEN) 22 MG/DL (6-23); CALCIUM, SERUM 8.2 MG/DL (8.5-10.4); CHLORIDE, SERUM 103 MMOL/L (96-112); CO2 (CARBON DIOXIDE) 26 MMOL/L (24-34); GFR AFRICAN AMERICAN 92 ML/MIN (>=60); GFR NON AFRICAN AMERICAN 80 ML/MIN (>=60); SODIUM, SERUM 137 MMOL/L (135-148); TROPONIN I 0.03 NG/ML (<0.05)
[2016-09-08 04:09] LABS: GLUCOSE, SERUM 150 MG/DL (60-99); POTASSIUM, SERUM 4.1 MMOL/L (3.5-5.3)
[2016-09-09 06:16] LABS: BASOPHILS 0.2 %; BASOPHILS ABSOLUTE 0.01 10/3/uL (0.0-0.16); EOSINOPHILS 1.7 %; HEMOGLOBIN 9.2 g/dL (13.6-17.8); IMMATURE GRANULOCYTES 0.3 %; IMMATURE GRANULOCYTES ABSOLUTE 0.02 10/3/uL (0.0-0.11); LYMPHOCYTES 12.7 %; LYMPHOCYTES ABSOLUTE 0.76 10/3/uL (0.67-4.30); MEAN CORPUS HGB CONC 34.8 g/dL (32.0-36.0); MEAN CORPUSCULAR HEMOGLOB 30.7 pg (26.0-34.0); MONOCYTES 6.7 %; NEUTROPHILS 78.4 %; NEUTROPHILS ABSOLUTE 4.69 10/3/uL (2.02-8.40); PLATELET COUNT 275 10/3/uL (150-400); RBC DISTRIBUTION WIDTH 12.8 % (12.0-16.0)
[2016-09-09 06:17] LABS: HEMATOCRIT 26.4 % (40.0-51.0); MANUAL DIFF NO %
[2016-09-09 06:32] LABS: BUN (BLOOD UREA NITROGEN) 26 MG/DL (6-23); CALCIUM, SERUM 7.8 MG/DL (8.5-10.4); CHLORIDE, SERUM 104 MMOL/L (96-112); CO2 (CARBON DIOXIDE) 26 MMOL/L (24-34); CREATININE 1.15 MG/DL (0.70-1.30); GFR AFRICAN AMERICAN 87 ML/MIN (>=60); GFR NON AFRICAN AMERICAN 75 ML/MIN (>=60); GLUCOSE, SERUM 94 MG/DL (60-99); SODIUM, SERUM 138 MMOL/L (135-148)
[2016-09-10 05:01] LABS: BASOPHILS 0.4 %; BASOPHILS ABSOLUTE 0.02 10/3/uL (0.0-0.16); EOSINOPHILS 2.9 %; EOSINOPHILS ABSOLUTE 0.15 10/3/uL (0.0-0.53); HEMATOCRIT 24.4 % (40.0-51.0); HEMOGLOBIN 8.5 g/dL (13.6-17.8); IMMATURE GRANULOCYTES 0.2 %; IMMATURE GRANULOCYTES ABSOLUTE 0.01 10/3/uL (0.0-0.11); LYMPHOCYTES 18.8 %; LYMPHOCYTES ABSOLUTE 0.96 10/3/uL (0.67-4.30); MEAN CORPUS HGB CONC 34.8 g/dL (32.0-36.0); MEAN CORPUSCULAR HEMOGLOB 31.4 pg (26.0-34.0); MEAN PLATELET VOLUME 10.1 fL (9.2-13.0); MONOCYTES 7.6 %; MONOCYTES ABSOLUTE 0.39 10/3/uL (0.21-1.20); NEUTROPHILS 70.1 %; NEUTROPHILS ABSOLUTE 3.57 10/3/uL (2.02-8.40); PLATELET COUNT 221 10/3/uL (150-400); RED CELL COUNT 2.71 10/6/uL (4.7-6.1); WHITE BLOOD CELLS 5.1 10/3/uL (4.5-10.5)
[2016-09-10 05:14] LABS: CALCIUM, SERUM 8.1 MG/DL (8.5-10.4); CHLORIDE, SERUM 102 MMOL/L (96-112); CO2 (CARBON DIOXIDE) 26 MMOL/L (24-34); CREATININE 1.28 MG/DL (0.70-1.30); GFR AFRICAN AMERICAN 77 ML/MIN (>=60); GFR NON AFRICAN AMERICAN 66 ML/MIN (>=60); GLUCOSE, SERUM 101 MG/DL (60-99); MANUAL DIFF NO %; POTASSIUM, SERUM 4.5 MMOL/L (3.5-5.3); SODIUM, SERUM 137 MMOL/L (135-148)
[2016-09-10 05:15] LABS: BUN (BLOOD UREA NITROGEN) 30 MG/DL (6-23)
[2016-09-11 03:31] LABS: ASCORBIC ACID (UR NOT ORDER) NEG (NEG); BILIRUBIN, URINE NEGATIVE (NEG); KETONE, URINE NEGATIVE (NEG); LEUKOCYTE ESTERASE(NOT OR NEG (NEG); WBC (NOT ORDERED) (RFLEX) < 1 (0-5)
[2016-09-11 06:18] LABS: BASOPHILS 0.4 %; BASOPHILS ABSOLUTE 0.02 10/3/uL (0.0-0.16); EOSINOPHILS 2.1 %; EOSINOPHILS ABSOLUTE 0.11 10/3/uL (0.0-0.53); HEMATOCRIT 26.2 % (40.0-51.0); IMMATURE GRANULOCYTES 0.4 %; IMMATURE GRANULOCYTES ABSOLUTE 0.02 10/3/uL (0.0-0.11); LYMPHOCYTES 16.6 %; LYMPHOCYTES ABSOLUTE 0.89 10/3/uL (0.67-4.30); MEAN CORPUS HGB CONC 34.4 g/dL (32.0-36.0); MEAN CORPUSCULAR HEMOGLOB 31.1 pg (26.0-34.0); MEAN CORPUSCULAR VOLUME 90.7 fL (80-100); MONOCYTES 6.7 %; MONOCYTES ABSOLUTE 0.36 10/3/uL (0.21-1.20); NEUTROPHILS 73.8 %; NEUTROPHILS ABSOLUTE 3.95 10/3/uL (2.02-8.40); PLATELET COUNT 218 10/3/uL (150-400); RBC DISTRIBUTION WIDTH 12.7 % (12.0-16.0); RED CELL COUNT 2.89 10/6/uL (4.7-6.1); WHITE BLOOD CELLS 5.4 10/3/uL (4.5-10.5)
[2016-09-11 06:20] LABS: MANUAL DIFF NO %
[2016-09-11 06:32] LABS: A/G RATIO 0.7 (0.7-1.9); ALBUMIN 2.4 G/DL (3.5-5.0); ALKALINE PHOSPHATASE 118 U/L (45-117); BUN (BLOOD UREA NITROGEN) 38 MG/DL (6-23); CALCIUM, SERUM 8.1 MG/DL (8.5-10.4); CHLORIDE, SERUM 101 MMOL/L (96-112); CO2 (CARBON DIOXIDE) 28 MMOL/L (24-34); CREATININE 1.35 MG/DL (0.70-1.30); DIRECT BILIRUBIN < 0.1 MG/DL (0.0-0.4); GFR AFRICAN AMERICAN 72 ML/MIN (>=60); GFR NON AFRICAN AMERICAN 62 ML/MIN (>=60); GLOBULIN 3.3 G/DL (2.5-4.1); GLUCOSE, SERUM 137 MG/DL (60-99); INDIRECT BILIRUBIN(NOT ORDER) 0.1 MG/DL (0.1-0.9); POTASSIUM, SERUM 4.7 MMOL/L (3.5-5.3); SGOT(AST) 36 U/L (5-40); SGPT(ALT) 27 U/L (5-65); SODIUM, SERUM 137 MMOL/L (135-148); TOTAL BILIRUBIN 0.2 MG/DL (0-1.2); TOTAL PROTEIN 5.7 G/DL (6.0-8.5)
[2016-09-11 07:12] LABS: B NATRIURETIC PEPTIDE (BNP) 1143.8 PG/ML (< 100.0)
[2016-09-12 05:49] LABS: BUN (BLOOD UREA NITROGEN) 49 MG/DL (6-23); CHLORIDE, SERUM 98 MMOL/L (96-112); CO2 (CARBON DIOXIDE) 29 MMOL/L (24-34); GFR AFRICAN AMERICAN 69 ML/MIN (>=60); GFR NON AFRICAN AMERICAN 59 ML/MIN (>=60); GLUCOSE, SERUM 158 MG/DL (60-99); POTASSIUM, SERUM 4.6 MMOL/L (3.5-5.3); SODIUM, SERUM 136 MMOL/L (135-148)
[2016-09-13 06:36] LABS: CALCIUM, SERUM 8.7 MG/DL (8.5-10.4); CHLORIDE, SERUM 99 MMOL/L (96-112); CO2 (CARBON DIOXIDE) 27 MMOL/L (24-34); CREATININE 1.36 MG/DL (0.70-1.30); GFR AFRICAN AMERICAN 71 ML/MIN (>=60); GFR NON AFRICAN AMERICAN 62 ML/MIN (>=60); GLUCOSE, SERUM 173 MG/DL (60-99); POTASSIUM, SERUM 4.6 MMOL/L (3.5-5.3); SODIUM, SERUM 136 MMOL/L (135-148)
[2016-09-13 06:40] LABS: BUN (BLOOD UREA NITROGEN) 54 MG/DL (6-23)
[2016-09-14 04:58] LABS: HEMATOCRIT 24.9 % (40.0-51.0); HEMOGLOBIN 8.4 g/dL (13.6-17.8)
[2016-09-14 05:23] LABS: CALCIUM, SERUM 8.2 MG/DL (8.5-10.4); CHLORIDE, SERUM 98 MMOL/L (96-112); CO2 (CARBON DIOXIDE) 30 MMOL/L (24-34); CREATININE 1.58 MG/DL (0.70-1.30); GFR AFRICAN AMERICAN 59 ML/MIN (>=60); GFR NON AFRICAN AMERICAN 51 ML/MIN (>=60); GLUCOSE, SERUM 204 MG/DL (60-99); PHOSPHORUS, SERUM 3.7 MG/DL (2.5-4.5); POTASSIUM, SERUM 4.9 MMOL/L (3.5-5.3); SODIUM, SERUM 136 MMOL/L (135-148)
[2016-09-14 05:30] LABS: BUN (BLOOD UREA NITROGEN) 64 MG/DL (6-23)
[2016-09-15 07:12] LABS: HEMOGLOBIN 9.6 g/dL (13.6-17.8)
[2016-09-15 07:14] LABS: HEMATOCRIT 27.8 % (40.0-51.0)
[2016-09-15 07:26] LABS: BUN (BLOOD UREA NITROGEN) 65 MG/DL (6-23); CALCIUM, SERUM 8.7 MG/DL (8.5-10.4); CHLORIDE, SERUM 100 MMOL/L (96-112); CO2 (CARBON DIOXIDE) 29 MMOL/L (24-34); CREATININE 1.28 MG/DL (0.70-1.30); GFR AFRICAN AMERICAN 77 ML/MIN (>=60); GFR NON AFRICAN AMERICAN 66 ML/MIN (>=60); POTASSIUM, SERUM 4.1 MMOL/L (3.5-5.3); SODIUM, SERUM 139 MMOL/L (135-148)
[2016-09-15 07:34] LABS: GLUCOSE, SERUM 77 MG/DL (60-99)
[2016-09-16 06:24] LABS: BUN (BLOOD UREA NITROGEN) 62 MG/DL (6-23); CHLORIDE, SERUM 102 MMOL/L (96-112); CO2 (CARBON DIOXIDE) 30 MMOL/L (24-34); CREATININE 1.22 MG/DL (0.70-1.30); GFR AFRICAN AMERICAN 81 ML/MIN (>=60); GFR NON AFRICAN AMERICAN 70 ML/MIN (>=60); GLUCOSE, SERUM 104 MG/DL (60-99); POTASSIUM, SERUM 4.2 MMOL/L (3.5-5.3); SODIUM, SERUM 140 MMOL/L (135-148)
[2016-09-18 07:05] LABS: HEMATOCRIT 25.8 % (40.0-51.0); HEMOGLOBIN 8.8 g/dL (13.6-17.8)
[2016-09-18 07:17] LABS: BUN (BLOOD UREA NITROGEN) 61 MG/DL (6-23); CALCIUM, SERUM 8.4 MG/DL (8.5-10.4); CHLORIDE, SERUM 99 MMOL/L (96-112); CO2 (CARBON DIOXIDE) 30 MMOL/L (24-34); CREATININE 1.28 MG/DL (0.70-1.30); GFR AFRICAN AMERICAN 77 ML/MIN (>=60); GFR NON AFRICAN AMERICAN 66 ML/MIN (>=60); GLUCOSE, SERUM 123 MG/DL (60-99); POTASSIUM, SERUM 4.2 MMOL/L (3.5-5.3); SODIUM, SERUM 137 MMOL/L (135-148)
[2016-09-18 10:04] LABS: BUN (BLOOD UREA NITROGEN) 65 MG/DL (6-23); CALCIUM, SERUM 8.6 MG/DL (8.5-10.4); CHLORIDE, SERUM 98 MMOL/L (96-112); CO2 (CARBON DIOXIDE) 31 MMOL/L (24-34); CREATININE 1.25 MG/DL (0.70-1.30); GFR AFRICAN AMERICAN 79 ML/MIN (>=60); GFR NON AFRICAN AMERICAN 68 ML/MIN (>=60); GLUCOSE, SERUM 186 MG/DL (60-99); POTASSIUM, SERUM 4.2 MMOL/L (3.5-5.3); SODIUM, SERUM 139 MMOL/L (135-148)
[2016-09-20 05:05] LABS: BUN (BLOOD UREA NITROGEN) 66 MG/DL (6-23); CALCIUM, SERUM 8.4 MG/DL (8.5-10.4); CHLORIDE, SERUM 99 MMOL/L (96-112); CO2 (CARBON DIOXIDE) 27 MMOL/L (24-34); CREATININE 1.37 MG/DL (0.70-1.30); GFR AFRICAN AMERICAN 71 ML/MIN (>=60); GFR NON AFRICAN AMERICAN 61 ML/MIN (>=60); GLUCOSE, SERUM 155 MG/DL (60-99); POTASSIUM, SERUM 4.3 MMOL/L (3.5-5.3); SODIUM, SERUM 138 MMOL/L (135-148)
[2016-12-29] MEDS ORDERED: IMDUR30 PO (05:42)
[2016-12-29] MEDS ORDERED: BUM1 PO (05:43)
[2016-12-29] MEDS ORDERED: DIAM250B PO (05:43)
[2016-12-29] MEDS ORDERED: ZOCOR40 PO (05:44)
[2016-12-29] MEDS ORDERED: COREG25 PO (05:44)
[2016-12-29] MEDS ORDERED: PRIN20 PO (05:45)
[2016-12-29] MEDS ORDERED: LAN125 PO (05:45)
[2016-12-29] MEDS ORDERED: HALF81 PO (05:45)
[2016-12-29] MEDS ORDERED: PLAVIX PO (05:46)
[2016-12-29] MEDS ORDERED: PROTONIX PO (05:46)
[2016-12-29] MEDS ORDERED: MICRO-K10 MEQ PO (05:47)
[2016-12-29] MEDS ORDERED: GAS X PO (05:48)
[2016-12-29] MEDS ORDERED: NOVOPEN (05:49)
[2016-12-29] MEDS ORDERED: FLONASE INH (05:50)
[2016-12-29] MEDS ORDERED: LEVEMFLXPN (05:51)
== END 2016-09-20 15:56 | DRG 292 ==
LOC: ER 13:46 → CDU1 17:45 → 2SO 09-08 11:29
PROVIDERS: Hospitalist; Internal Medicine; Nurse Practitioner Family
DX: I50.43 Acute on chronic combined systolic (congestive) and diastolic (congestive) heart failure (principal); N17.9 Acute kidney failure, unspecified; E11.65 Type 2 diabetes mellitus with hyperglycemia; E83.51 Hypocalcemia; I11.0 Hypertensive heart disease with heart failure; E78.5 Hyperlipidemia, unspecified; F31.9 Bipolar disorder, unspecified; D64.9 Anemia, unspecified; Z91.14 Patient's other noncompliance with medication regimen; Z83.3 Family history of diabetes mellitus; Z98.890 Other specified postprocedural states; Z79.4 Long term (current) use of insulin
CPT/HCPCS: 36600; 71010; 80048; 80053; 80162; 80305; 80307; 81001; 82140; 82248; 82330; 82805; 82962; 83036; 83735; 83880; 84100; 84439; 84443; 84484; 85014; 85018; 85025; 85610; 85730; 93005; 96374; 96375; 97110-GP; 97116-GP; 97161-GP; 99285; A9270-GY; G8978-CJ-GP; G8979-CJ-GP; J0360; P9047

== ENCOUNTER 2016-10-19 04:43 | Observation (INO) | payer BC ==
--- NOTE | ~2016-10-19 | HP ---
History And Physical [address] [address] NAME: STERLING LOUIE : 68 STATUS : ADM [facility] PAT#: [id number] AGE: 46 ADM/REG DATE : 10/19/16 MR#: [id number] REPORT SERV DATE: 10/19/16 DICTATED BY: JENNIFER FELTON DATE: 10/19/16 REPORT STATUS : Draft TRANSCRIBED BY: KWABENA DATE: 10/19/16 DATE OF ADMISSION: 10/19/2016 CHIEF COMPLAINT: Nosebleed. HISTORY OF PRESENT ILLNESS: The patient is a 46-year-old male, who was transferred from [facility] for nosebleed. The patient denies any associated symptoms prior to nosebleed. ALLERGIES: HALDOL, THE PATIENT UNSURE OF REACTION. CODE STATUS: Full. MEDICATIONS: 1. Diamox 125 mg p.o. daily. 2. Bumex 1 mg p.o. twice a day. 3. Coreg 25 mg p.o. twice a day. 4. Digoxin 125 mcg p.o. daily. 5. Lantus 18 units subcu twice a day. 6. Imdur 30 mg p.o. daily. 7. Levothyroxine 25 mcg p.o. daily. 8. Lisinopril 20 mg p.o. daily. 9. Simvastatin 40 mg p.o. q.h.s. PAST MEDICAL HISTORY: Positive for: 1. Chronic systolic congestive heart failure/mixed ischemic cardiomyopathy with last echocardiogram done on 06/14/2016 revealed EF of 25%. 2. Coronary artery disease. 3. Diabetes mellitus. 4. Hypertension. 5. Hyperlipidemia. 6. Depression/personality disorder. 7. Chronic bilateral hearing deficit. PAST SURGICAL HISTORY: 1. Left wrist surgery in the past. 2. Left ear surgery. 3. Status post ablation for PAF/flutter early this year. 4. Prior PTCA and stent, remote. SOCIAL HISTORY: The patient is currently a resident of [facility] for approximately one month. The patient is , unemployed, has four children. History And Physical [address] [address] NAME: STERLING LOUIE : 68 STATUS : ADM [facility] PAT#: [id number] AGE: 46 ADM/REG DATE : 10/19/16 MR#: [id number] REPORT SERV DATE: 10/19/16 DICTATED BY: JENNIFER FELTON DATE: 10/19/16 REPORT STATUS : Draft TRANSCRIBED BY: KWABENA DATE: 10/19/16 The patient denies history of smoking. He reports he quit drinking two years ago. He denied except from any history of positive substance abuse to include barbiturates and amphetamines. FAMILY HISTORY: The patient reports mother with a history of diabetes and of a heart disease. REVIEW OF SYSTEMS: The patient denies any recent history of runny nose, sneezing, or nasal congestion. The patient reports he blew his nose last night around 8 p.m. and that is when his nosebleed started. The patient denies any problem with his eyesight. He denies any problem with swallowing. He denies any complaint of neck pain. He denies any complaint of chest pain. He denies any shortness of breath. He denies any complaint of abdominal pain, nausea, or vomiting. The patient reports he urinates well and has regular bowel movement. The patient denies any pain complaint of his extremity. No issue with skin breakdown. The patient reports he has history of depression. The patient denies any history of seizure or stroke. The patient with history of diabetes with insulin. The patient has been on aspirin and Plavix. PHYSICAL EXAMINATION: VITAL SIGNS: Temp of 97.4, BP of 193/93, pulse of 87, respiratory rate 16, sat O2 of 93% on room air. GENERAL: The patient is not a pleasant gentleman. He is irritable. Did not want to be bothered on exam and interview. He is alert and oriented x3. HEENT: He has left nasal packing that is secured. No bright red blood noted. Old blood noted around his left naris, his chin, and his front T-shirt area. His right naris is patent. Eyes, PERRL. NECK: No JVD. Moves neck without pain. CHEST: No chest deformity noted. LUNGS: Clear to auscultation bilaterally. Symmetrical expansion. CV: No murmurs or rubs noted. Regular rate and rhythm. Normal S1 and S2 noted. ABDOMEN: Soft and nontender. Active bowel sounds. : Not assessed. EXTREMITIES: No clubbing or cyanosis. 2+ edema noted in bilateral feet. LABORATORY STUDY: Sodium 143, potassium 4.5, chloride 110, CO2 of 27, BUN 52, creatinine of 1.48, glucose of 132, GFR of 64. WBC of 6.1, hemoglobin 7.7, hematocrit 22.5, platelets 218. PT 14.9, INR 1.2, and PTT of 13.4. Repeat hemoglobin was 7.4, hematocrit was 20.7. ASSESSMENT: 1. Left anterior nasal wall epistaxis. 2. Acute on chronic anemia. 3. Chronic kidney disease stage 2. 4. Mixed ischemic cardiomyopathy/chronic systolic congestive heart failure. 5. Coronary artery disease. 6. Type 2 diabetes with insulin. 7. Hypertension, primary with coronary artery disease and diabetes. History And Physical [address] [address] NAME: STERLING LOUIE : 68 STATUS : ADM [facility] PAT#: [id number] AGE: 46 ADM/REG DATE : 10/19/16 MR#: [id number] REPORT SERV DATE: 10/19/16 DICTATED BY: JENNIFER FELTON DATE: 10/19/16 REPORT STATUS : Draft TRANSCRIBED BY: KWABENA DATE: 10/19/16 8. Depression/agitation/personality disorder. 9. Hyperlipidemia. PLAN: 1. Discussed with Dr. Garcia, ENT, regarding the patient's epistaxis. The patient's epistaxis had been controlled with current packing. Dr. Garcia instructed us this is not to be removed and will need to have a followup appointment with him on an outpatient basis in five days to remove packing. Dr. Garcia recommended empiric treatment for staph; therefore, we will place the patient on Duricef 500 mg p.o. q.12 hours x5 days. The patient is afebrile with admission white count of 6.1. 2. The patient with history of anemia secondary to chronic disease. Admission hemoglobin was 7.7 and hematocrit was 22.5, repeat after 12 hours were 7.4 and 20.7. Plan to proceed with one unit of pack red blood cell transfusion. Repeat H and H and BMP post blood transfusion today. Hope, this should bring hemoglobin up to mid 8, and if this is the case, we will plan to proceed with transferring the patient back to [facility] and have his H and H re-evaluated in a.m. as long as the patient's epistaxis does not reoccur, the patient's anemia should be stable. We will plan to hold his Plavix and aspirin for at least until he follows up with Dr. Garcia to ensure that there is no recurrence of his epistaxis. 3. The patient with history of chronic systolic congestive heart failure. His home medicine has been resumed. He is receiving Diamox and Bumex this morning. We doubt he will need any diuretics after one unit of blood transfusion, monitor for any signs or symptoms of CHF exacerbation. 4. The patient with history of hypertension. His BP is elevated this morning, likely secondary to not having his usual morning BP medication regimen, we will resume this and monitor his vital signs. The patient is at risk for CVA. 5. The patient with history of diabetes with insulin. Resume his regular home regimen of Lantus and monitor his blood sugar q.a.c. while he is here and continue the level 1 sliding scale to treat hyperglycemia. 6. Once the patient's H and H and BMP post transfusion are reviewed, we will plan to transfer the patient back to [facility] today with a.m. followup labs and strict instruction not to remove left naris packing until done by Dr. Garcia secondary to increased risk of recurrent epistaxis. 7. Discussed plan of care with nursing staff as well as the patient, the patient verbalized understanding and the importance of keeping his left naris packing in place. 8. Reviewed discharge paperwork and MAR. 9. Addressed code status with the patient. The patient desires full code, and a POLST form is in chart from [facility]. DICTATED BY: Gia Kinney NP CLP/MODL Jennifer Felton M.D. History And Physical [address] [address] NAME: STERLING LOUIE : 68 STATUS : ADM [facility] PAT#: [id number] AGE: 46 ADM/REG DATE : 10/19/16 MR#: [id number] REPORT SERV DATE: 10/19/16 DICTATED BY: JENNIFER FELTON DATE: 10/19/16 REPORT STATUS : Draft TRANSCRIBED BY: GABBYL DATE: 10/19/16 / [id number] CC: Jennifer Felton M.D.
[2016-10-19 03:05] LABS: BASOPHILS 0.3 %; BASOPHILS ABSOLUTE 0.02 10/3/uL (0.0-0.16); EOSINOPHILS 3.6 %; EOSINOPHILS ABSOLUTE 0.22 10/3/uL (0.0-0.53); HEMATOCRIT 22.5 % (40.0-51.0); HEMOGLOBIN 7.7 g/dL (13.6-17.8); IMMATURE GRANULOCYTES 0.3 %; IMMATURE GRANULOCYTES ABSOLUTE 0.02 10/3/uL (0.0-0.11); LYMPHOCYTES ABSOLUTE 0.92 10/3/uL (0.67-4.30); MEAN CORPUS HGB CONC 34.2 g/dL (32.0-36.0); MEAN CORPUSCULAR HEMOGLOB 31.2 pg (26.0-34.0); MEAN CORPUSCULAR VOLUME 91.1 fL (80-100); MEAN PLATELET VOLUME 9.3 fL (9.2-13.0); MONOCYTES 7.2 %; MONOCYTES ABSOLUTE 0.44 10/3/uL (0.21-1.20); NEUTROPHILS 73.6 %; NEUTROPHILS ABSOLUTE 4.51 10/3/uL (2.02-8.40); PLATELET COUNT 218 10/3/uL (150-400); RBC DISTRIBUTION WIDTH 13.1 % (12.0-16.0); RED CELL COUNT 2.47 10/6/uL (4.7-6.1); WHITE BLOOD CELLS 6.1 10/3/uL (4.5-10.5)
[2016-10-19 03:06] LABS: MANUAL DIFF NO %
[2016-10-19 03:12] LABS: INTERNATIONAL NORMAL RATI 1.2 UNITS (-); PROTIME (NOT ORD) 14.9 SEC (12.0-14.5)
[2016-10-19 03:13] LABS: PARTIAL THROMBO TIME 33.4 SEC (22.5-37.2)
[2016-10-19 03:23] LABS: EOSINOPHILS 3 %; EOSINOPHILS ABSOLUTE (CALC) 0.18 10/3/uL (0.0-0.53); ER DIFF TAT 0 Hrs 22 Mins; LYMPHOCYTES 12 %; LYMPHOCYTES ABSOLUTE (CALC) 0.73 10/3/uL (0.67-4.30); MONOCYTES 3 %; MONOCYTES ABSOLUTE (CALC) 0.18 10/3/uL (0.21-1.20); PLATELET ESTIMATE ADQ (ADEQUATE); RBC MORPHOLOGY NORM (NORMAL); SEGMENTED NEUTROPHIL (0) 82 %; TOTAL NUCLEATED CELLS 100
[2016-10-19 03:54] LABS: CALCIUM, SERUM 8.2 MG/DL (8.5-10.4); CHLORIDE, SERUM 110 MMOL/L (96-112); CO2 (CARBON DIOXIDE) 27 MMOL/L (24-34); CREATININE 1.48 MG/DL (0.70-1.30); GFR AFRICAN AMERICAN 64 ML/MIN (>=60); GFR NON AFRICAN AMERICAN 56 ML/MIN (>=60); GLUCOSE, SERUM 132 MG/DL (60-99); POTASSIUM, SERUM 4.5 MMOL/L (3.5-5.3); SODIUM, SERUM 143 MMOL/L (135-148)
[2016-10-19 03:55] LABS: BUN (BLOOD UREA NITROGEN) 52 MG/DL (6-23)
[2016-10-19] MEDS ORDERED: SYN.025B PO (06:26)
[2016-10-19] MEDS ORDERED: ASAB PO (06:26)
[2016-10-19] MEDS ORDERED: LANTUS SC ×2 (06:27→06:28)
[2016-10-19 10:15] LABS: HEMOGLOBIN 7.4 g/dL (13.6-17.8)
[2016-10-19 10:16] LABS: HEMATOCRIT 20.7 % (40.0-51.0)
[2016-10-19 19:03] LABS: HEMATOCRIT 24.3 % (40.0-51.0); HEMOGLOBIN 8.4 g/dL (13.6-17.8)
[2016-10-19 19:10] LABS: CALCIUM, SERUM 8.4 MG/DL (8.5-10.4); CHLORIDE, SERUM 110 MMOL/L (96-112); CO2 (CARBON DIOXIDE) 26 MMOL/L (24-34); CREATININE 1.19 MG/DL (0.70-1.30); GFR AFRICAN AMERICAN 84 ML/MIN (>=60); GFR NON AFRICAN AMERICAN 72 ML/MIN (>=60); GLUCOSE, SERUM 134 MG/DL (60-99); POTASSIUM, SERUM 4.2 MMOL/L (3.5-5.3); SODIUM, SERUM 142 MMOL/L (135-148)
[2016-10-19 19:12] LABS: BUN (BLOOD UREA NITROGEN) 57 MG/DL (6-23)
[2016-12-29] MEDS ORDERED: IMDUR30 PO (05:42)
[2016-12-29] MEDS ORDERED: DIAM250B PO (05:43)
[2016-12-29] MEDS ORDERED: BUM1 PO (05:43)
[2016-12-29] MEDS ORDERED: COREG25 PO (05:44)
[2016-12-29] MEDS ORDERED: ZOCOR40 PO (05:44)
[2016-12-29] MEDS ORDERED: PRIN20 PO (05:45)
[2016-12-29] MEDS ORDERED: LAN125 PO (05:45)
[2016-12-29] MEDS ORDERED: HALF81 PO (05:45)
[2016-12-29] MEDS ORDERED: PLAVIX PO (05:46)
[2016-12-29] MEDS ORDERED: PROTONIX PO (05:46)
[2016-12-29] MEDS ORDERED: MICRO-K10 MEQ PO (05:47)
[2016-12-29] MEDS ORDERED: GAS X PO (05:48)
[2016-12-29] MEDS ORDERED: NOVOPEN (05:49)
[2016-12-29] MEDS ORDERED: FLONASE INH (05:50)
[2016-12-29] MEDS ORDERED: LEVEMFLXPN (05:51)
== END 2016-10-19 21:36 ==
LOC: ER 04:43 → 5SO 06:14
PROVIDERS: Family Medicine; Specialist
PROC: 0W3Q7ZZ Control Bleeding in Respiratory Tract, Via Natural or Artificial Opening (ICD-10-PCS; principal; 2016-10-19)
DX: R04.0 Epistaxis (principal); D64.9 Anemia, unspecified; F32.9 Major depressive disorder, single episode, unspecified; E78.5 Hyperlipidemia, unspecified; E11.22 Type 2 diabetes mellitus with diabetic chronic kidney disease; I13.0 Hypertensive heart and chronic kidney disease with heart failure and stage 1 through stage 4 chronic kidney disease, or unspecified chronic kidney disease; N18.2 Chronic kidney disease, stage 2 (mild); I50.22 Chronic systolic (congestive) heart failure; Z79.82 Long term (current) use of aspirin; Z79.51 Long term (current) use of inhaled steroids; Z98.890 Other specified postprocedural states
CPT/HCPCS: 36415; 36430; 80048; 82962; 85014; 85018; 85025; 85610; 85730; 86850; 86900; 86901; 86920; 96374; 99285; A9270-GY; G0378; J2550; P9016